=== PATIENT | female | born 1960 | race Caucasian/White ===

== ENCOUNTER → 2023-03-10 | Outpatient (CLI) | payer MEDICARE | END | disposition short-term general hospital (02) | LOC: EMS 12:50 | DX: R07.89 Other chest pain (principal); R10.13 Epigastric pain | CPT/HCPCS: A0425; A0429 ==

== ENCOUNTER 2023-04-15 08:00 | Outpatient (CLI) | payer MEDICARE ==
--- NOTE | 2023-04-15 15:10 | XRAY Report ---
PROCEDURE: Foot 3 View LT INDICATIONS: LEFT FOOT PAIN TECHNIQUE: 3 views of the foot were acquired. COMPARISON: None. FINDINGS: Bones: No acute fracture or dislocation identified. Bunion deformity present. Moderate first MTP jossue nt degenerative changes. Lucency first metatarsal head nonspecific, possible subchondral cystic beckham e. Scattered degenerative changes of the forefoot. Soft tissues: No suspicious soft tissue calcifications . IMPRESSION: No acute bony abnormality. If pain persists with conservative management, consider repeat radiographs in 10-14 days or cross-sectional imaging. Reviewed by: Emil Saul MD on 04/15/2023 3:08 PM PDT Approved by: Emil Saul MD on 04/15/2023 3:08 PM PDT Station ID: [id number]
== END 2023-04-15 23:59 | disposition home or self-care (01) ==
LOC: DI.S 08:00
PROVIDERS: ATTEND Physician Assistant
DX: M79.672 Pain in left foot (principal)